=== PATIENT | male | born 1950 | race Caucasian/White ===

== ENCOUNTER 2019-10-18 08:48 | Outpatient (CLI) | payer MEDICARE, BC ==
[~2019-10-18] VITALS: Ht 175.3 cm; Wt 84.1 kg
--- NOTE | ~2019-10-18 | HP ---
PATIENT: SAMIRA HOOD MEDICAL RECORD: [id number] ACCOUNT: [id number] LOCATION:[facility] : 48 ADMISSION DATE: 10/18/19 PCP: ABIMBOLA MARKS MD HISTORY AND PHYSICAL EXAMINATION DIAGNOSES: 1. Angina. 2. Abnormal nuclear stress test. 3. Hypertension. 4. Hyperlipidemia. HISTORY OF PRESENT ILLNESS: This is a gentleman with no past history of ischemic heart disease, began developing chest discomfort. He has risk stratify with stress testing in [place], which was abnormal, suggestive of hemodynamically significant coronary artery disease. He is now brought for cardiac catheterization. He is on maximal medical therapy with a calcium channel ely and a beta-ely. His heart rates are in the 60s. Systolic blood pressure is in the 110 range. PHYSICAL EXAMINATION: CONSTITUTIONAL/GENERAL APPEARANCE: Well nourished, well developed, appears stated age. EYES: Lids and conjunctivae noninjected. No discharge. No pallor. ENT: Lips within normal limit. No cyanosis. No pallor. NECK: Carotid arteries, bilateral normal upstroke. No bruits. No thrills. No jugular venous pressure or distention. CERVICAL LYMPH NODES: Nontender. Nonenlarged. THYROID: Not enlarged. No nodules. CARDIOVASCULAR: Precordial exam, nondisplaced. No heaves or pericardial thrills. Rate and rhythm, regular. Heart sounds, normal S1, normal S2. No S3, no gallop, no rub. Systolic murmur, not heard. Diastolic murmur, not heard. RESPIRATORY: Respiratory effort, unlabored. Normal curvature. No thoracic deformity. No chest wall tenderness. Percussion, resonant. Auscultation, clear. No wheezes, no rales, no rhonchi. ABDOMEN: Soft, nondistended, nontender. No abdominal pain, no vomiting and normal appetite. MUSCULOSKELETAL: No joint tenderness, normal gait, normal tone. SKIN: Warm and dry. OVERALL IMPRESSION: Continued anginal symptomatology, abnormal nuclear stress test on maximal medical therapy for his heart rate and blood pressure. We will proceed with coronary angiography. TRANSINT:[id number] Voice Confirmation ID: [id number] DOCUMENT ID: [id number] HISTORY AND PHYSICAL [id number] ERWIN,SAMIRAABIMBOLA ALDANA MD CC: [id number] DICTATION DATE: 10/18/19 1316 DEEP TISSUE MASSAGE THERAPIST: 12/20/19 1345 [facility] [address] [facility] [place] [address]
--- NOTE | ~2019-10-18 | OP ---
PATIENT NAME: SAMIRA HOOD MEDICAL RECORD: [id number] :48 LOCATION:D.[facility] ADMISSION DATE: SURGEON: ABIMBOLA MARKS MD DATE OF OPERATION: 10/18/2019 PROCEDURES: 1. Left heart catheterization. 2. Selective coronary angiography. 3. Left ventriculogram. INDICATION: Angina and coronary artery disease. PROCEDURE IN DETAIL: After informed consent was obtained and after a detailed description of the risks, benefits as well as alternative therapies, the patient elected to proceed with angiogram and heart catheterization. The right radial area was prepped and draped in normal sterile fashion. Right radial artery was cannulated via modified Seldinger technique with placement of 5-Bahraini sheath. All catheters exchanged through this sheath. FINDINGS: Left ventriculogram was performed at standard 30-degree SHINE view, reveals good cardiac wall motion, ejection fraction estimated 60%. SELECTIVE CORONARY ANGIOGRAPHY: Left main, left anterior descending, left circumflex, right coronary artery are all smooth-walled vessels with no angiographic evidence of coronary artery disease. OVERALL IMPRESSION: 1. No angiographic evidence of coronary artery disease. 2. Normal left heart pressures. 3. Normal left ventricular systolic function. Chest pain is noncardiac in etiology. No other cardiac workup needs to be ascertained. TRANSINT:[id number] Voice Confirmation ID: [id number] DOCUMENT ID: [id number] ABIMBOLA MARKS MD CC: [id number] DICTATION DATE: 10/18/19 1317 CERAMIC MOLD DESIGNER: 10/18/19 1730 DEP CLI 10/18/19 [facility] [address] [place] [address]
--- NOTE | ~2019-10-18 | HEMODYNAMI ---
PATIENT:SAMIRA HOOD MEDICAL RECORD: [id number] : 48 LOCATION:[facility] ADMISSION DATE: 10/18/19 Generatedon:10/18/201913:11 Patient name: SAMIRA HOOD Patient #: [id number] SSN: [id number] : 1950 Date of study: 10/18/2019 Page: Of Hemodynamic Procedure Report Patient Data Patient Demographics Procedure consent was obtained First Name: SAMIRA Gender: Male Last Name: ERWIN : 1950 Patient #: [id number] Age: 68 year(s) Race: Unknown SSN: [id number] Additional ID: [id number] Contact details [address]: [address] [place] [address] State: [place] City: [place] Zip code: [address] Past Medical History Allergies: No known allergies Admission Admission Data Admission Date: 10/18/2019 Admission Time: 8:48 Arrival Date: 10/18/2019 Arrival Time: 0:00 Height (in.): 69 BSA: 2 (m2) Height (cm.): 175.26 BMI: 27.35 (kg/m2) Weight (lbs.): 185.19 Weight (kg.): 84 Lab Results Lab Result Date: 10/18/2019 Lab Result Time: 0:00 Biochemistry Name Units Result Min Max BUN mg/dl 21 --(----)-* 7 18 Creatinine mg/dl 1.4 --(----)*- 0.6 1.3 eGFR ml/min 53 *-(----)-- 90 120 NONAFRICAN CBC Name Units Result Min Max Hematocrit % 47.8 --(-*--)-- 42 54 Hemoglobin g/dl 15.9 --(--*-)-- 13.5 17.5 Procedure Procedure Types Cath Procedure Diagnostic Procedure LHC LHC w/Coronaries Procedure Description Procedure Date Procedure Date: 10/18/2019 Procedure Start Time: 13:00 Procedure End Time: 13:09 Procedure Staff Name Function Dontrell Farooq MD Performing Physician Jessica Godoy RT Monitor Hanh Santiago RT Scrub Benito Johns RN Nurse Procedure Data Cath Procedure Fluoroscopy Diagnostic fluoroscopy Total fluoroscopy Time: 1.9 time: 1.9 min min Diagnostic fluoroscopy Total fluoroscopy dose: 459 dose: 459 mGy mGy Contrast Material Contrast Material Type Amount (ml) Isovue 300 54 Entry Location Entry Primary Successful Side Size Upsize Upsize Entry Closure Francisco ccessful Closure Location (Fr) 1 (Fr) 2 (Fr) Remarks Device Remarks Radial Right 6 Fr Mechanical artery Short Compression Estimated blood loss: 5 ml Diagnostic catheters Device Type Used For End Catheter Placement DIAGNOSTIC [place] 110cm 5 Procedure Fr catheter ([id number]) DIAGNOSTIC AR2 MOD 5 Fr Procedure catheter ([id number]) Procedure Complications No complications Procedure Medications Medication Administration Route Dosage 0.9% NaCl I.V. 100 ml/hr Oxygen etCO2 Nasal cannula 2 l/min Heparin Flush Bag added to field 2 bags (1000units/500ml NS) Lidocaine 2% added to field 20 Radial Cocktail added to field 1 syringe (Verapamil 2mg/Nitro 400mcg/Heparin 1500units) Versed I.V. 2 mg Fentanyl I.V. 100 mcg Radial Cocktail I.A. 1 syringe (Verapamil 2mg/Nitro 400mcg/Heparin 1500units) Hemodynamics Rest BSA: 2 (m2) HGB: 15.9 (g/dl) O2 Consumption: Estimated: 218.55 (ml/min) O2 Consu mption indexed: Estimated:109.28 (ml/min/m) Heart Rate: 52 (bpm) Snapshots Pre Cath Intra NCS Post Cath Vital Signs Time Heart Resp SPO2 etCO2 NIBP (mmHg) Rhythm Pain Sedation Rate (ipm) (%) (mmHg) Status Level (bpm) 12:49:40 53 24 100 34.1 121/81(101) NSR 0 (11) 10(A) , No pain 12:53:50 58 27 95 31.8 112/78(91) NSR 0 (11) 10(A) , No pain 12:57:56 61 27 96 28 127/74(99) NSR 0 (11) 10(A) , No pain 13:02:00 53 14 88 39.4 111/72(94) NSR 0 (11) 9(A) , No pain 13:06:06 60 13 95 30.3 93/60(79) NSR 0 (11) 9(A) , No pain Medications Time Medication Route Dose Verified Delivered Reason Notes Effectiveness by by 12:48:51 0.9% NaCl I.V. 100 Benito Benito Per ml/hr Nat Johns physician RN RN 12:49:04 Oxygen etCO2 2 l/min Benito Benito for low 02 Nasal Lorigan Violetigan sats cannula RN RN 12:49:14 Heparin Flush added 2 bags Benito Benito used for Bag to Lorigan Lorigan procedure (1000units/500ml field RN RN NS) 12:49:23 Lidocaine 2% added 20ml Benito Benito for local to vial Lorigan Lorigan anesthetic field RN RN 12:49:37 Radial Cocktail added 1 Benito Benito used for (Verapamil to syringe Lorigan Lorigan procedure 2mg/Nitro field RN RN 400mcg/Heparin 1500units) 12:59:02 Versed I.V. 2 mg Benito Benito for sedation Nat Johns RN RN 12:59:10 Fentanyl I.V. 100 mcg Benito Benito for sedation Nat Johns RN RN 13:01:49 Radial Cocktail I.A. 1 Benito Dontrell for (Verapamil syringe Nat Farooq MD vasodilation 2mg/Nitro RN 400mcg/Heparin 1500units) Procedure Log Time Note 12:06:49 Informed consent obtained and on chart 12:07:12 Procedure Status Elective Heart Cath (OP). 12:07:37 H&P Date Dictated: 10/18/2019 New H&P dictated by physician.. 12:07:44 Patient allergic to No known allergies 12:09:35 Lab Result : BUN 21 mg/dl 12:09:35 Lab Result : eGFR NONAFRICAN 53 ml/min 12:09:35 Lab Result : Creatinine 1.4 mg/dl 12:09:35 Lab Result : Hemoglobin 15.9 g/dl 12:09:35 Lab Result : Hematocrit 47.8 % 12:10:16 Patient Weight : 185.19 lbs 12:10:19 Patient Height : 69 inches 12:10:25 Arrival Date: 10/18/2019 12:00:00 AM 12:32:20 Time tracking: Regular hours (M-F 7:00 - 5:00) 12:32:24 Plan of Care:Hemodynamics will remain stable., Cardiac rhythm will remain stable., Comfort level will be maintained., Respiratory function will remain adequate., Patient/ family verbilizes understanding of procedure., Procedure tolerated without complication., Recovers from procedure without complications.. 12:34:08 Benito Johns RN sent for patient. Start room use. 12:39:51 Patient received from Pre/Post Procedure Room to CCL 1 Alert and oriented. Tansferred to table in Supine position. 12:39:53 Warm blankets applied, and nicole hugger turned on for patient comfort. 12:39:53 Correct patient and procedure confirmed by team. 12:39:53 ECG and BP/O2 sat monitors applied to patient. 12:48:42 Vital chart was started 12:48:43 Baseline sample Acquired. 12:48:46 Rhythm: sinus bradycardia 12:48:48 Full Disclosure recording started 12:48:49 Pre-procedure instructions explained to patient. 12:48:49 Pre-op teaching completed and patient verbalized understanding. 12:48:50 Family in patients room. 12:48:51 0.9% NaCl 100 ml/hr I.V. was administered by Benito Johns RN; Per physician; Verbal order read back and verified. 12:48:53 Patient NPO since Midnight. 12:48:55 Is the patient allergic to Iodine/contrast media? No. 12:48:57 Is patient on blood thinner?No 12:49:02 Patient diabetic? No. 12:49:04 Oxygen 2 l/min etCO2 Nasal cannula was administered by Benito Jhons RN; for low 02 sats; Verbal order read back and verified. 12:49:05 Previous problem with sedation/anesthesia? No ? 12:49:06 Snore? Yes 12:49:08 Sleep apnea? No 12:49:08 Deviated septum? No 12:49:09 Opens mouth fully? Yes 12:49:11 Sticks out tongue? Yes 12:49:13 Airway obstruction? No ? 12:49:14 Heparin Flush Bag (1000units/500ml NS) 2 bags added to field was administered by Benito Johns RN; used for procedure; Verbal order read back and verified. 12:49:15 Dentures? No ? 12:49:19 Modified Kobe's test Ulnar < 7 seconds 12:49:21 Pre procedure: right dorsailis pedis pulse 2+ Normal; easily identifiable; not easily obliterated 12:49:23 Lidocaine 2% 20ml vial added to field was administered by Benito Johns RN; for local anesthetic; Verbal order read back and verified. 12:49:27 IV patent on arrival in left hand with 0.9% NaCl at O. 12:49:30 Lab results completed and on chart. 12:49:37 Radial Cocktail (Verapamil 2mg/Nitro 400mcg/Heparin 1500units) 1 syringe added to field was administered by Benito Johns RN; used for procedure; Verbal order read back and verified. 12:50:51 Right Radial & Right Groin area was prepped with chlora-prep and draped in sterile fashion 12:50:52 Alarms reviewed by R. N. 12:50:52 Sharps counted by scrub and verified by R.N. 12:50:54 Use device set Radial Dx or PCI 12:50:55 ACIST Syringe (36344) opened to sterile field. 12:50:56 Bag Decanter (2002S) opened to sterile field. 12:50:56 ACIST Hand Control (27493) opened to sterile field. 12:50:57 ACIST Manifold (23179) opened to sterile field. 12:50:57 Tegaderm 4 x 4 (1626W) opened to sterile field. 12:50:59 Medline Cath Pack ([id number]) opened to sterile field. 12:50:59 MBrace Wrist Support (085877122) opened to sterile field. 12:51:01 EMERALD Guide Wire (368-090) opened to sterile field. 12:51:02 SHEATH 6FR RAIN (7168821) opened to sterile field. 12:52:58 Risk of Mortality: .1 12:53:00 Risk of blood transfusion: .1 12:53:04 Risk of YAMILET: .7 12:56:34 --------ALL STOP TIME OUT------ 12:56:34 Final Timeout: patient, procedure, and site verified with staff and physician. All members of the team are in agreement. 12:56:36 Right Radial & Right Groin site verified by team. 12:56:40 Fire Safety Assessment: A--An alcohol-based skin anteseptic being used preoperatively., C--Open oxygen or nitrous oxide is being used., D--An ESU, laser, or fiber-optic light is being used. 12:56:44 Physical assessment completed. ASA score P 2 - A patient with mild systemic disease as per Dontrell Farooq MD. 12:56:48 3a) 45-59 Moderately reduced kidney function. 12:56:52 Maximum allowable contrast dose (3.7 X eGFR X 0.75)147 ml. 12:56:57 Sedation plan: IV Moderate Sedation Medication:Versed, Fentanyl 12:59:02 Versed 2 mg I.V. was administered by Benito Johns RN; for sedation; Verbal order read back and verified. 12:59:10 Fentanyl 100 mcg I.V. was administered by Benito Johns RN; for sedation; Verbal order read back and verified. 13:00:32 Procedure started. 13:00:38 Local anesthetic to right radial artery with Lidocaine 2% by Dontrell Farooq MD.INITIAL ACCESS ONLY 13:01:21 A 6 Fr Short sheath was inserted into the Right Radial artery 13:01:27 A DIAGNOSTIC [place] 110cm 5 Fr catheter (177529) was advanced over the wire and used for Procedure. 13:01:47 Zero performed for pressure channel P1 13:01:49 Radial Cocktail (Verapamil 2mg/Nitro 400mcg/Heparin 1500units) 1 syringe I.A. was administered by Dontrell Farooq MD; for vasodilation; Verbal order read back and verified. 13:02:00 LV gram done using SHINE 13:02:03 Injector settings: Ml/sec: 5, Volume: 15, 13:02:44 EF : 55 % 13:03:37 LCA angiography performed. 13:04:14 Catheter exchanged over wire. 13:04:23 UNABLE TO ENGAGE RCA 13:04:52 A DIAGNOSTIC AR2 MOD 5 Fr catheter (340669V) was advanced over the wire and used for Procedure. 13:05:57 RCA angiography performed. 13:06:08 ACCDominant side:Left 13:06:18 Catheter removed. 13:06:25 Procedure ended.(Physican Out) 13:06:45 ZEPHYR REGULAR TR BAND (648098) opened to sterile field. 13:06:55 Sheath removed intact; hemostasis achieved with Mechanical Compression to the Right Radial artery. 13:07:02 Fluoroscopy time 01.90 minutes. 13:07:07 Fluoroscopy dose: 459 mGy 13:07:07 Flurop Dose total: 459 13:07:15 Dose Area Product 60441 mGy/cm. 13:07:20 Contrast amount:Isovue 300 54ml. 13:07:22 Maximum allowable dose exceeded? No. 13:07:24 Sharps counted by scrub and verified by R.N. 13:07:58 Lathrop band inflated with 10cc of air. 13:08:01 Post-procedure physical assessment completed. ASA score P 2 - A patient with mild systemic disease as per Dontrell Farooq MD. 13:08:06 Post procedure rhythm: unchanged. 13:08:11 Estimated blood loss: 5 ml 13:08:12 Post procedure instruction explained to patient.Patient verbalizes understanding. 13:08:13 Patient needs reinforcement of post procedure teaching. 13:08:47 Procedure and supply charges have been captured, reviewed, submitted and are correct. 13:08:50 Procedure Complication : No complications 13:08:51 Vital chart was stopped 13:09:17 [facility] Findings: mild to moderate CAD (<70%) 13:09:25 Operative report dictated upon procedure completion. 13:09:25 See physician's report for complete and final results. 13:09:27 Report given to Pre/Post Procedure Room. 13:09:29 Patient transfered to Pre/Post Procedure Room with Bed. 13:09:31 Procedure ended. 13:09:31 Full Disclosure recording stopped 13:09:35 End room use (Document Last) 13:10:40 End room use (Document Last) 13:10:59 End room use (Document Last) Device Usage Item Name Manufacture Quantity Catalog Hospital Part Current Minima l Lot# / Number Charge Number Stock Stock Serial# Code ACIST Acist 1 49454 [id number] [id number] [id number] 20 Syringe Medical (37372) Systems Inc Bag Microtek 1 437918 77304 852784 5 Decanter Medical Inc. () ACIST Hand Acist 1 20896 620526 986951 232302 5 Control Medical (60190) Systems Inc ACIST Acist 1 27287 462884 000182 477605 5 Manifold Medical (93328) Systems Inc Tegaderm 4 3M 1 1626W 989591 581299 355510 5 x 4 (1626W) Medline Medline 1 [id number] 465189 87557 286901 5 Cath Pack ([id number]) MBrace Advanced 1 140-0250-00 200058 69990 416773 5 Wrist Vascular Support Dynamics ([id number]) EMERALD Cardinal 1 502-455 809113 078238 655733 5 Guide Wire Health (502455) SHEATH 6FR Cardinal 1 8897428 899002 0224182 423639 5 RAIN Health (6171274) DIAGNOSTIC Terumo 1 40-5013 002062 708412 902382 5 [place] 110cm 5 Fr catheter (351171) DIAGNOSTIC Cardinal 1 [id number] 222226 413276 688445 20 AR2 MOD 5 Health Fr catheter (416087P) ZEPHYR Cardinal 1 596067 520235 1924045 350560 5 REGULAR TR Health BAND (811492) Signature Audit [place] Stage Time Signature Unsigned Intra-Procedure 10/18/2019 Jessica Godoy 1:10:40 PM RT(R) Intra-Procedure 10/18/2019 Benito 1:10:59 PM Nat ACEVES Intra-Procedure 10/18/2019 Dontrell Farooq 1:11:19 PM [facility] [address] [place] [address]
[2019-10-18] MEDS ORDERED: MOBIC7.5 MG PO (09:31)
[2019-10-18] MEDS ORDERED: LOPRESSOR25 MG PO (09:31)
[2019-10-18] MEDS ORDERED: HCTZ25 MG PO (09:32)
[2019-10-18] MEDS ORDERED: LOTREL 10-40 M1 EACH PO (09:33)
[2019-10-18] MEDS ORDERED: FENOFIBRATE160 MG PO (09:34)
[2019-10-18] MEDS ORDERED: CIALIS10 MG PO (09:34)
[2019-10-18] MEDS ORDERED: FLOMAX0.4 MG PO (09:34)
[2019-10-18] MEDS ORDERED: DEPAKENE 2250 MG/5 M PO (09:35)
[2019-10-18 09:51] VITALS: BP 121/75; Ht 175.3 cm; Wt 84.1 kg
[2019-10-18 10:00] LABS: BASOPHILS 0.2 % (0-2); EOSINOPHILS 2.7 % (0-7); HEMATOCRIT 47.8 % (42.0-54.0); HEMOGLOBIN 15.9 g/dL (13.5-17.5); IMMATURE GRANULOCYTES 0.2 % (0-5); LYMPHOCYTES 20.7 % (15-50); MCH 31.5 pg (26.0-34.0); MCHC 33.3 g/dL (31.0-37.0); MCV 94.7 fL (80.0-100.0); MEAN PLATELET VOLUME 10.2 fL (7.4-10.4); MONOCYTES 12.6 % (2-11); NEUTROPHILS 63.6 % (40-80); PLATELET COUNT 259 10x3/uL (130-400); RBC 5.05 10x6/uL (4.20-6.10); RDW 13.6 % (11.5-14.5); WBC 5.6 10x3/uL (4.8-10.8)
[2019-10-18 10:19] LABS: ANION GAP 14.5 mmol/L (8-16); CALCIUM 9.2 mg/dL (8.5-10.1); CARBON DIOXIDE 26.3 mmol/L (21.0-32.0); CHOL - HDL RATIO 3.4 ratio (2.3-4.9); CREATININE - SERUM 1.4 mg/dL (0.6-1.3); LDL-HDL RATIO 1.8 ratio (1.5-3.5); POTASSIUM - SERUM 3.8 mmol/L (3.5-5.1)
--- NOTE | 2019-10-18 13:20 | NUR ---
PT ARRIVED BY STRETCHER. PLACED ON MONITORS. ASSESSMENT COMPLETED. VSS. FAMILY AT BEDSIDE. CALL LIGHT WITHIN REACH.
--- NOTE | 2019-10-18 13:35 | NUR ---
RIGHT WRIST Z BAND NO BLEEDING/HEMATOMA NOTED. CALL LIGHT WITHIN REACH. FAMILY AT BEDSIDE. PT EATING AND DRINKING. DENIES NAUSEA/PAIN AT THIS TIME.
--- NOTE | 2019-10-18 14:00 | NUR ---
PT RESTING COMFORTABLY. VSS. RIGHT WRIST Z BAND IN PLACE. NO BLEEDING/HEMATOMA NOTED. CALL LIGHT WITHIN REACH. VSS.
--- NOTE | 2019-10-18 14:15 | NUR ---
2cc OF AIR REMOVED FROM Z BAND. TOLERATING WELL. VSS AT THIS TIME. FAMILY AT BEDSIDE. CALL LIGHT WITHIN REACH. NO BLEEDING/HEMATOMA NOTED.
--- NOTE | 2019-10-18 14:32 | NUR ---
4cc OF AIR REMOVED FROM Z BAND. NO BLEEDING/HEMATOMA NOTED AT THIS TIME. CALL LIGHT WITHIN REACH. VSS.
--- NOTE | 2019-10-18 14:52 | NUR ---
3cc OF AIR REMOVED FROM Z BAND. NO BLEEDING/HEMATOMA NOTED. CALL LIGHT WITHIN REACH. VSS.
--- NOTE | 2019-10-18 15:00 | NUR ---
Z BAND REMOVED AND DRESSING APPLIED. PIV D/C'D WITH CATH TIP INTACT. TOLERATED WELL. NO BLEEDING/HEMATOMA NOTED TO RIGHT WRIST. PT INSTRUCTED TO GET UP AND DRESSED AT THIS TIME.
--- NOTE | 2019-10-18 15:10 | NUR ---
DISCUSSED DISCHARGE INSTRUCTIONS WITH PT AND PT'S FAMILY. THEY VOICED UNDERSTANDING.
--- NOTE | 2019-10-18 15:15 | NUR ---
PT AMBULATED TO RESTROOM. VOIDED WITHOUT DIFFICULTY. TAKEN OUT TO VEHICLE BY WHEELCHAIR. NO S/S OF DISTRESS NOTED. ALL BELONGINGS AND PAPERWORK IN HAND.
== END 2019-10-18 15:15 | disposition home or self-care (01) ==
LOC: D.CATH 08:48
PROVIDERS: ATTEND Internal Medicine Interventional Cardiology
DX: I25.119 Atherosclerotic heart disease of native coronary artery with unspecified angina pectoris (principal)